=== PATIENT | male | born 1930 | race Caucasian/White ===

== ENCOUNTER 2018-09-12 05:22 | Emergency (ER) | payer MEDICARE, OTHER ==
[~2018-09-12] VITALS: Ht 182.9 cm; Wt 81.7 kg
[~2018-09-12 05:22] MED LIST: ARICEPT 5 MG TAB5 MG PO; ASPIRIN325 PO; DUONEB 2.5-0.5 M3 ML INH; FINASTERIDE5 MG PO; LEVAQUIN 500 M500 M2 PO; LOPRESSOR25 PO; MULTI VITAMIN1 EACH PO; NORVASC5 MG PO; PREDNISONE 10 M10 MG PO; VITAMIN D3400 UNIT PO; XANAX 0.25 MG0.25 MG PO
[2018-09-12] MEDS ORDERED: PROSCAR 5MG TABL5 MG (05:39)
[2018-09-12] MEDS ORDERED: CETIRIZINE HCL10 MG (05:39)
[2018-09-12] MEDS ORDERED: TRAZODONE HCL50 MG (05:39)
[2018-09-12 05:58] LABS: HEMATOCRIT 42.4 % (42.0-52.0); MCH 31.3 pg (26.0-34.0); MCV 94.9 fL (80.0-100.0); MPV 9.3 fl. (7.2-11.1); NUCLEATED RBCS 0 /100WBC; PLATELET COUNT* 155 thou/uL (150-400); RBC 4.46 mil/uL (4.50-6.00); WBC 8.4 thou/uL (4.0-11.0)
[2018-09-12 06:12] LABS: ANION GAP 8 mmol/L (7-16); BUN 32 mg/dL (7-18); CALCIUM 9.3 mg/dL (8.5-10.1); CHLORIDE 109 mmol/L (98-107); CO2 28 mmol/L (21-32); CREATININE 1.7 mg/dL (0.6-1.3); GLUCOSE 98 mg/dL (70-99); POTASSIUM 3.9 mmol/L (3.5-5.1); SODIUM 145 mmol/L (136-145)
[2018-09-12 06:14] LABS: APTT 27.3 Seconds (25.0-31.3); INR 1.1
[2018-09-12 06:19] LABS: ALBUMIN 3.2 g/dL (3.4-5.0); ALKALINE PHOSPHATASE 61 U/L (46-116); SGOT 39 U/L (15-37); SGPT 28 U/L (30-65); TOTAL PROTEIN 6.3 g/dL (6.4-8.2); TROPONIN-I LEVEL <0.06 ng/mL (<0.06)
[2018-09-12 06:34] LABS: ABSOLUTE EOSINOPHILS 0.2 thou/uL (0.0-0.7); ABSOLUTE LYMPHOCYTES 0.5 thou/uL (0.8-5.3); ABSOLUTE MONOCYTES 0.9 thou/uL (0.0-1.2); ABSOLUTE NEUTROPHILS 6.8 thou/uL (1.6-8.1); PLATELET ESTIMATE ADEQUATE
[2018-09-12 10:19] VITALS: BP 142/72
--- NOTE | 2018-09-12 14:28 | EKG ---
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 : 1930 Requested By: Nicolas Turpin Order Number: [id number] MD: Deniz Chavez Measurements Intervals [place] Rate: 53 P: HI: QRS: -29 QRSD: 132 T: QT: 473 QTc: 445 Interpretive Statements sinus bradycardia with pvc artifact noted Compared to ECG 06/22/2016 16:23:24 Sinus rhythm no longer present Atrial premature complex(es) no longer present Electronically Signed On 09-12-2018 14:28:33 APPLICATIONS SCIENTIST by Deniz Chavez [email or web address] <ELECTRONICALLY SIGNED> By: Deniz Chavez MD, [facility] 09/12/18 1428 Deniz Chavez MD, [facility] /EPI
== END 2018-09-12 10:21 | disposition home or self-care (01) ==
LOC: M.ERS 05:22
PROVIDERS: Family Medicine
DX: S30.0XXA Contusion of lower back and pelvis, initial encounter (principal); F03.90 Unspecified dementia, unspecified severity, without behavioral disturbance, psychotic disturbance, mood disturbance, and anxiety; J44.9 Chronic obstructive pulmonary disease, unspecified; I10 Essential (primary) hypertension; Z90.49 Acquired absence of other specified parts of digestive tract; W18.39XA Other fall on same level, initial encounter; Y93.89 Activity, other specified; Y92.89 Other specified places as the place of occurrence of the external cause; Y99.8 Other external cause status; Z88.0 Allergy status to penicillin; Z88.1 Allergy status to other antibiotic agents

== ENCOUNTER 2019-01-26 12:06 | Emergency (ER) | payer MEDICARE, OTHER ==
[~2019-01-26] VITALS: Ht 172.7 cm; Wt 95.3 kg
[~2019-01-26 12:06] MED LIST changes: +CETIRIZINE HCL10 MG; +PROSCAR 5MG TABL5 MG; +TRAZODONE HCL50 MG
[2019-01-26 12:07] VITALS: BP 146/59
--- NOTE | 2019-01-26 12:32 | NUR ---
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 THIS NURSE SPOKE WITH THEM AND ASKED ABOUT THE PATIENT'S BASELINE MENTAL STATUS THE PATIENT HAS DIMENTIA LISTED IN HIS MEDICAL HISTORY. THE PATIENT'S DAUGHTER AND REPORT THAT THE PATIENT MOST LIKELY WILL NOT ANSWER QUESTIONS DUE TO HIS DIAGNOSIS OF DIMENTIA. THE PT'S DAUGHTER REPORTS THAT THE LAST TIME THE PATIENT CAME TO THE EMERGENCY DEPARTMENT AT [facility] THAT THE PATIENT HAD AN ELEVATED TROPONIN AND SAW DR. JO. PER DOM, "HIS TROPONIN IS NOT ANYTHING TO WORRY ABOUT." DOM ALSO STATES THAT SHE DOES NOT THINK THAT THE PATIENT NEEDS TO BE ADMITTED. DOM STATES THAT IF WE HAVE ANY FURTHER QUESTIONS THEN WE CAN GET A HOLD OF HER AT [phone] AND IF WE WOULD LIKE FOR THEM TO COME TO THE EMERGENCY DEPARTMENT THEN JUST CALL THEM AND THEY WILL DRIVE HERE.
[2019-01-26 12:36] LABS: ABSOLUTE BASOPHILS 0.1 thou/uL (0.0-0.2); ABSOLUTE EOSINOPHILS 0.5 thou/uL (0.0-0.7); ABSOLUTE LYMPHOCYTES 1.4 thou/uL (0.8-5.3); ABSOLUTE MONOCYTES 1.1 thou/uL (0.0-1.2); ABSOLUTE NEUTROPHILS 5.2 thou/uL (1.6-8.1); BASOPHILS 0.8 %; HEMATOCRIT 39.9 % (42.0-52.0); HEMOGLOBIN 13.1 gm/dL (14.0-18.0); LYMPHOCYTES 17.4 %; MCH 30.8 pg (26.0-34.0); MCV 93.5 fL (80.0-100.0); MONOCYTES 13.3 %; MPV 9.2 fl. (7.2-11.1); NUCLEATED RBCS 0 /100WBC; PLATELET COUNT* 196 thou/uL (150-400); POLYS 62.5 %; RBC 4.26 mil/uL (4.50-6.00); RDW-CV 15.2 % (10.5-14.5); WBC 8.3 thou/uL (4.0-11.0)
[2019-01-26 12:44] LABS: PROTIME 10.4 Seconds (9.20-11.50)
--- NOTE | 2019-01-26 12:48 | NUR ---
ISABELLA, FROM [facility] WAS CONTACTED AND THIS NURSE REQUESTED AN UPDATED MEDICATION LIST FOR THE PATIENT. ISABELLA WAS GIVEN OUR FAX NUMBER IN THE EMERGENCY DEPARTMENT AND SHE STATES SHE WILL FAX A CURRENT MEDICATION LIST FOR THE PATIENT.
[2019-01-26] MEDS ORDERED: VITAMIN D2000 UNIT PO (12:57)
[2019-01-26] MEDS ORDERED: POLYETHYLENE G500 G3 PO (12:57)
[2019-01-26] MEDS ORDERED: TYLENOL325 MG PO (12:58)
[2019-01-26] MEDS ORDERED: DEPAKOTE SPRIN125 MG PO (12:58)
--- NOTE | 2019-01-26 12:58 | NUR ---
PT'S UPDATED MEDICATION LIST RECEIVED FROM [facility]. PT'S CHART HAS BEEN UPDATED AND LIST HAS BEEN POLACED IN THE PATIENT'S CHART.
[2019-01-26 13:30] LABS: ALBUMIN 2.7 g/dL (3.4-5.0); ALKALINE PHOSPHATASE 64 U/L (46-116); ANION GAP 6 mmol/L (7-16); BUN 40 mg/dL (7-18); CALCIUM 8.7 mg/dL (8.5-10.1); CHLORIDE 112 mmol/L (98-107); CO2 30 mmol/L (21-32); CREATININE 1.4 mg/dL (0.6-1.3); GLUCOSE 94 mg/dL (70-99); LIPASE 164 U/L (73-393); MAGNESIUM 2.2 mg/dL (1.8-2.4); NT-PRO BRAIN NAT PEPTIDE 526 pg/mL (<300); POTASSIUM 3.8 mmol/L (3.5-5.1); SGOT 16 U/L (15-37); SGPT 13 U/L (30-65); SODIUM 148 mmol/L (136-145); TOTAL BILIRUBIN 0.3 mg/dL (<0.1-1.0); TOTAL PROTEIN 6.6 g/dL (6.4-8.2); TROPONIN-I LEVEL <0.06 ng/mL (<0.06)
[2019-01-26 14:18] VITALS: BP 142/62
--- NOTE | 2019-01-26 16:03 | EKG ---
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 : 1930 Requested By: Jax Lee Order Number: [id number] MD: Madi Jimenez Measurements Intervals [place] Rate: 53 P: 62 TN: 216 QRS: 25 QRSD: 94 T: 47 QT: 471 QTc: 443 Interpretive Statements Sinus bradycardia with sinus arrhythmia Borderline prolonged [place] interval Minimal ST depression, anterolateral leads Compared to ECG 09/12/2018 05:30:41 ST (T wave) deviation now present Ventricular premature complex(es) no longer present Electronically Signed On 01-26-2019 16:03:14 CDT by Madi Jimenez [email or web address] <ELECTRONICALLY SIGNED> By: Madi Jimenez MD, [facility] 01/26/19 1603 1214 1214 Madi Jimenez MD, [facility] /EPI
== END 2019-01-26 15:33 | disposition home or self-care (01) ==
LOC: M.ERS 12:06 → M.TBA-ER 14:25 → M.ERS 15:33
PROVIDERS: Emergency Medicine Emergency Medical Services
DX: R07.89 Other chest pain (principal); F03.90 Unspecified dementia, unspecified severity, without behavioral disturbance, psychotic disturbance, mood disturbance, and anxiety; J44.9 Chronic obstructive pulmonary disease, unspecified; I10 Essential (primary) hypertension; N40.0 Benign prostatic hyperplasia without lower urinary tract symptoms; Z88.0 Allergy status to penicillin; Z88.1 Allergy status to other antibiotic agents; Z90.49 Acquired absence of other specified parts of digestive tract